=== PATIENT | male | born 1955 | race Caucasian/White ===

== ENCOUNTER 2017-12-19 19:25 | Emergency (ER) | payer MEDICARE ==
[2017-12-19 21:22] LABS: HEMATOCRIT 43.4 % (42.0-52.0); HEMOGLOBIN 13.9 g/dl (13.5-17.5); MEAN CORPUSCULAR HEMOGLOBIN 29.1 pg (27.0-33.0); PLATELET COUNT, AUTOMATED 223 10^3/uL (150-450); RED BLOOD COUNT 4.77 10^6/uL (4.30-6.10); RED CELL DISTRIBUTION WIDTH 12.3 % (11.5-14.5); WHITE BLOOD COUNT 3.8 10^3/uL (4.0-10.0)
[2017-12-19 21:40] LABS: ALBUMIN 3.6 GM/DL (3.2-5.2); ALKALINE PHOSPHATASE 103 U/L (45-117); ALT/SGPT 23 U/L (12-78); ANION GAP 5 MEQ/L (8-16); AST/SGOT 17 U/L (7-37); BILIRUBIN,DIRECT < 0.1 MG/DL (0.0-0.2); BILIRUBIN,TOTAL 0.3 MG/DL (0.2-1.0); BLOOD UREA NITROGEN 6 MG/DL (7-18); CALCIUM LEVEL 8.4 MG/DL (8.8-10.2); CARBON DIOXIDE LEVEL 34 MEQ/L (21-32); CHLORIDE LEVEL 103 MEQ/L (98-107); GLOMERULAR FILTRATION RATE > 60.0 (>49); GLUCOSE, FASTING 94 MG/DL (70-100); POTASSIUM SERUM 4.4 MEQ/L (3.5-5.1); SALICYLATE LEVEL < 1.7 MG/DL (5.0-30.0); SODIUM LEVEL 142 MEQ/L (136-145); THYROID STIMULATING HORMONE 0.829 uIU/ML (0.358-3.740); TOTAL PROTEIN 7.2 GM/DL (6.4-8.2)
[2017-12-19 21:41] LABS: ACETAMINOPHEN LEVEL < 2.0 UG/ML (10.0-30.0)
[2017-12-19 21:43] LABS: AMPHETAMINES LEVEL URINE NEGATIVE (NEGATIVE); BARBITURATES URINE NEGATIVE (NEGATIVE); BENZODIAZEPINES URINE NEGATIVE (NEGATIVE); CANNABINOIDS URINE NEGATIVE (NEGATIVE); COCAINE METABOLITE URINE NEGATIVE (NEGATIVE); METHADONE URINE NEGATIVE (NEGATIVE); OPIATES URINE NEGATIVE (NEGATIVE); PHENCYCLIDINE URINE NEGATIVE (NEGATIVE)
== END 2017-12-20 12:53 ==
LOC: M ED 12-20 12:53
DX: F32.9 Major depressive disorder, single episode, unspecified (principal); R45.851 Suicidal ideations; I10 Essential (primary) hypertension; M54.9 Dorsalgia, unspecified; G89.29 Other chronic pain; Z79.899 Other long term (current) drug therapy; Z79.82 Long term (current) use of aspirin
CPT/HCPCS: 70450

== ENCOUNTER 2022-07-15 08:55 | Inpatient (IN) | payer MEDICARE ==
[~2022-07-15] VITALS: Ht 177.8 cm; Wt 95.8 kg
[~2022-07-15 08:55] MED LIST: ASPI-546; FENTANYL; IPRA6SP; LOSARTAN; OXYCODONE; PROP10TA56; TRAZ-252 PO; VENL37.598 PO; VENL75CA47 PO
[2022-07-15 09:22] LABS: HEMATOCRIT 45.2 % (42.0-52.0); HEMOGLOBIN 14.8 g/dl (13.5-17.5); MEAN CORPUSCULAR HEMOGLOBIN 30.6 pg (27.0-33.0); MEAN CORPUSCULAR HGB CONC 32.7 g/dl (32.0-36.5); MEAN CORPUSCULAR VOLUME 93.4 fl (80.0-96.0); PLATELET COUNT, AUTOMATED 266 10^3/uL (150-450); RED BLOOD COUNT 4.84 10^6/uL (4.30-6.10)
[2022-07-15 09:46] LABS: ETHYL ALCOHOL (ETHANOL) 0.243 % (0.000-0.010)
[2022-07-15 09:47] LABS: ACETAMINOPHEN LEVEL < 2.0 UG/ML (10.0-20.0); ALBUMIN 3.8 G/DL (3.2-5.2); ALKALINE PHOSPHATASE 116 U/L (46-116); ALT/SGPT 68 U/L (7.0-40); AST/SGOT 27 U/L (<34); BILIRUBIN,DIRECT < 0.1 MG/DL (<0.4); BILIRUBIN,TOTAL 0.2 MG/DL (0.3-1.2); BLOOD UREA NITROGEN 11 MG/DL (9-23); CALCIUM LEVEL 9.3 MG/DL (8.3-10.6); CARBON DIOXIDE LEVEL 25 MMOL/L (20-31); CHLORIDE LEVEL 105 MMOL/L (98-107); CREATININE FOR GFR 0.64 MG/DL (0.70-1.30); GLOMERULAR FILTRATION RATE > 60.0 (>49); GLUCOSE, FASTING 108 MG/DL (74-106); SALICYLATE LEVEL < 3.0 MG/DL (<30); SODIUM LEVEL 141 MMOL/L (136-145); TOTAL PROTEIN 7.7 G/DL (5.7-8.2)
[2022-07-15 09:50] LABS: THYROID STIMULATING HORMONE 0.783 uIU/ML (0.55-4.78)
[2022-07-15 10:27] LABS: AMPHETAMINES LEVEL URINE NEGATIVE (NEGATIVE); BARBITURATES URINE NEGATIVE (NEGATIVE); BENZODIAZEPINES URINE NEGATIVE (NEGATIVE); CANNABINOIDS URINE NEGATIVE (NEGATIVE); COCAINE METABOLITE URINE NEGATIVE (NEGATIVE); METHADONE URINE NEGATIVE (NEGATIVE); OPIATES URINE NEGATIVE (NEGATIVE); PHENCYCLIDINE URINE NEGATIVE (NEGATIVE)
[2022-07-15] MEDS ORDERED: FENT75DI29 PO (15:16)
[2022-07-15] MEDS ORDERED: IRBE150T7 PO (15:16)
[2022-07-15] MEDS ORDERED: HOME MED LIST COMPLETE! XX SCH (15:20)
[2022-07-15] MEDS ORDERED: MAALOX 30 ML SUSP *UDC PO PRN (16:05)
[2022-07-15] MEDS ORDERED: traZODone 50 MG TAB PO PRN (16:05)
[2022-07-15] MEDS ORDERED: ACETAMINOPHEN TAB 650MG DOSE (2X325MG) PO PRN (16:05)
[2022-07-15] MEDS ORDERED: MOM 30ML SUSPENSION UDC PO PRN (16:05)
[2022-07-15] MEDS ORDERED: IBUPROFEN 400MG TAB PO PRN (16:05)
[2022-07-15] MEDS ORDERED: LORazepam 2 MG TAB PO PRN (16:05)
[2022-07-15] MEDS ORDERED: diphenhydrAMINE 25MG CAP PO PRN (16:05)
[2022-07-15 17:50] VITALS: BP 170/90; TEMP 96.2; O2SAT 95
[2022-07-15] MEDS: FOLIC ACID 1MG TAB PO SCH (17:56)
[2022-07-15] MEDS: MULTIVITAMINS/MINERALS THERAP 1 TAB PO SCH (17:56)
[2022-07-15] MEDS: THIAMINE 100 MG TAB PO SCH (17:56)
[2022-07-15] MEDS ORDERED: fentaNYL 75 MCG/HR PATCH TOP SCH (20:50)
[2022-07-15] MEDS ORDERED: FENTANYL REMOVAL DOCUMENTATION MISC XX SCH (20:50)
[2022-07-15] MEDS: IRBESARTAN 150MG TAB PO SCH (21:33)
[2022-07-15 22:00] VITALS: BP 160/88
[2022-07-16 06:47] VITALS: BP 142/72; TEMP 97.3; O2SAT 98
[2022-07-16] MEDS: VENLAFAXINE **XR** 37.5 MG CAPSULE PO SCH (08:31)
[2022-07-16] MEDS: VENLAFAXINE **XR** 75MG CAPSULE PO SCH (08:31)
[2022-07-16] MEDS: THIAMINE 100 MG TAB PO SCH ×2 (08:32→21:30)
[2022-07-16] MEDS: MULTIVITAMINS/MINERALS THERAP 1 TAB PO SCH (08:32)
[2022-07-16] MEDS: FOLIC ACID 1MG TAB PO SCH (08:32)
[2022-07-16] MEDS ORDERED: FENTANYL REMOVAL DOCUMENTATION MISC XX SCH (08:45)
[2022-07-16] MEDS ORDERED: fentaNYL 75 MCG/HR PATCH TOP SCH (09:00)
[2022-07-16 14:00] VITALS: BP_SYST 163; BP_SYST 172; BP_DIAS 78; BP_DIAS 93
[2022-07-16 16:16] VITALS: TEMP 98.1; O2SAT 97
[2022-07-16] MEDS: traZODone 50 MG TAB PO PRN (21:30)
[2022-07-16] MEDS: IRBESARTAN 150MG TAB PO SCH (21:30)
[2022-07-17 06:23] VITALS: BP 158/79
[2022-07-17] MEDS: VENLAFAXINE **XR** 75MG CAPSULE PO SCH (08:54)
[2022-07-17] MEDS: MULTIVITAMINS/MINERALS THERAP 1 TAB PO SCH (08:54)
[2022-07-17] MEDS: FOLIC ACID 1MG TAB PO SCH (08:54)
[2022-07-17] MEDS: THIAMINE 100 MG TAB PO SCH ×2 (08:54→20:55)
[2022-07-17] MEDS: VENLAFAXINE **XR** 37.5 MG CAPSULE PO SCH (08:55)
[2022-07-17 14:55] VITALS: BP 148/94
[2022-07-17 18:59] VITALS: BP 150/80; TEMP 98.6; O2SAT 99
[2022-07-17 20:55] VITALS: BP 162/100
[2022-07-17] MEDS: traZODone 50 MG TAB PO PRN (20:55)
[2022-07-17] MEDS: IRBESARTAN 150MG TAB PO SCH (20:55)
[2022-07-17 22:45] VITALS: BP 148/92; TEMP 97.6; O2SAT 96
[2022-07-18 00:45] VITALS: BP 126/74; O2SAT 95
[2022-07-18 06:15] VITALS: BP 142/82
[2022-07-18] MEDS: FOLIC ACID 1MG TAB PO SCH (08:37)
[2022-07-18] MEDS: THIAMINE 100 MG TAB PO SCH (08:37)
[2022-07-18] MEDS: MULTIVITAMINS/MINERALS THERAP 1 TAB PO SCH (08:37)
[2022-07-18] MEDS: VENLAFAXINE **XR** 37.5 MG CAPSULE PO SCH (08:38)
[2022-07-18] MEDS: VENLAFAXINE **XR** 75MG CAPSULE PO SCH (08:38)
== END 2022-07-18 09:47 | disposition home or self-care (01) | DRG 897 ==
LOC: M ED 08:55 → M ED INP 16:03 → M PSY 17:06
PROVIDERS: ADMIT Student in an Organized Health Care Education/Training Program; ATTEND Student in an Organized Health Care Education/Training Program
DX: F10.24 Alcohol dependence with alcohol-induced mood disorder (principal); F10.239 Alcohol dependence with withdrawal, unspecified; F43.20 Adjustment disorder, unspecified; R45.850 Homicidal ideations; I10 Essential (primary) hypertension; M51.26 Other intervertebral disc displacement, lumbar region; I48.0 Paroxysmal atrial fibrillation; F32.A Depression, unspecified; Z79.899 Other long term (current) drug therapy; Z20.822 Contact with and (suspected) exposure to COVID-19; I25.2 Old myocardial infarction; Z63.0 Problems in relationship with spouse or partner